=== PATIENT | male | born 1980 | race Two or more races ===

== ENCOUNTER 2023-01-12 17:29 | Emergency (ER) | payer OTHER ==
[~2023-01-12] VITALS: Ht 177.8 cm; Wt 79.4 kg
== END 2023-01-12 20:43 | disposition home or self-care (01) ==
LOC: ER 17:29
DX: U07.1 COVID-19 (principal); G44.89 Other headache syndrome

== ENCOUNTER 2023-01-14 05:55 | Emergency (ER) | payer OTHER ==
[~2023-01-14] VITALS: Ht 175.3 cm; Wt 79.4 kg
[2023-01-14] MEDS ORDERED: METHYLPREDNISOLO8 MG (06:04)
[2023-01-14] MEDS ORDERED: MOLNUPIRAVIR (200 MG (06:04)
[2023-01-14] MEDS ORDERED: NORFLEX100MG PO (08:46)
== END 2023-01-14 08:52 | disposition home or self-care (01) ==
LOC: ER 05:55
DX: U07.1 COVID-19 (principal); R53.81 Other malaise

== ENCOUNTER 2023-01-30 09:21 | Outpatient (CLI) | payer OTHER ==
[~2023-01-30 09:21] MED LIST: METHYLPREDNISOLO8 MG; MOLNUPIRAVIR (200 MG; NORFLEX100MG PO
== END 2023-01-30 09:27 | disposition home or self-care (01) ==
LOC: RX STUDY 09:21
PROVIDERS: ATTEND Otolaryngology Plastic Surgery within the Head & Neck
DX: R13.19 Other dysphagia (principal)

== ENCOUNTER 2024-08-15 07:45 | Emergency (ER) | payer OTHER ==
[~2024-08-15] VITALS: Ht 177.8 cm; Wt 81.6 kg
[2024-08-15] MEDS ORDERED: METHYLPREDNISOLONE SOD SUCC 40 MG VIAL ONE (10:42)
[2024-08-15 11:03] LABS: HEMATOCRIT 44.8 % (39.0-48.0); HEMOGLOBIN 15.5 g/dL (13-16.00); MEAN CELL VOLUME 89.8 fL (80.0-100.00); MEAN CORPUSCULAR HGB CONC 34.5 g/dl (32.0-36.0); PLATELET COUNT 176 K/uL (150-450); RED BLOOD COUNT 4.99 M/uL (4.00-6.00); RED CELL DISTRIBUTION WIDTH 14.1 % (11.5-14.5)
[2024-08-15 11:50] LABS: ALBUMIN 4.1 gm/dL (3.4-5.0); BILIRUBIN TOTAL 0.49 mg/dL (0.3-1.2); CALCIUM 8.9 mg/dL (8.5-10.1); CREATININE SERUM 1.21 mg/dL (0.70-1.30); GFR 64.85; GLOBULINA 3.4 G/DL (2.4-3.5); POTASSIUM 4.28 mEq/L (3.5-5.1); TOTAL PROTEIN 7.5 gm/dL (6.4-8.2)
[2024-08-15 13:43] LABS: PH,URINE 5.5 (5.0-8.0); URINE APPEARANCE Clear; URINE BILIRRUBIN Negative (NEGATIVE); URINE BLOOD Negative; URINE COLOR Yellow; URINE GLUCOSE Negative (NEGATIVE); URINE KETONE Negative (NEGATIVE); URINE LEUKOCYTE Negative; URINE NITRATE Negative; URINE PROTEIN Negative (NEGATIVE); URINE UROBILINOGEN 0.2 E.U./dl
[2024-08-15 13:47] LABS: URINE BACTERIA 81.9 uL (0.0-1933); URINE EPITHELIAL CELLS 2.8 uL (0.0-38.8); URINE WBC 23.5 uL (0.0-23.2)
[2024-08-15 13:50] LABS: URINE RBC 0.2 uL (0.0-20.8)
== END 2024-08-15 13:47 | disposition home or self-care (01) ==
LOC: ER 07:47
PROVIDERS: General Practice
DX: R10.32 Left lower quadrant pain (principal); K29.70 Gastritis, unspecified, without bleeding; F41.8 Other specified anxiety disorders

== ENCOUNTER 2024-08-30 04:26 | Emergency (ER) | payer OTHER ==
[~2024-08-30] VITALS: Ht 177.8 cm; Wt 81.6 kg
[2024-08-30] MEDS ORDERED: METOCLOPRAMIDE HCL 5 MG/ML VIAL IM STA (04:56)
[2024-08-30] MEDS ORDERED: HYOSCYAMINE SULFATE 0.125 MG TAB.SUBL SL STA (04:57)
[2024-08-30] MEDS ORDERED: HYOSCYAMINE SULFATE 0.125 MG TAB.SUBL ONE (05:00)
[2024-08-30] MEDS ORDERED: METOCLOPRAMIDE HCL 5 MG/ML VIAL ONE (05:00)
== END 2024-08-30 05:59 | disposition home or self-care (01) ==
LOC: ER 04:28
DX: K30 Functional dyspepsia (principal); K29.70 Gastritis, unspecified, without bleeding
CPT/HCPCS: 96372; 99282; J2765

== ENCOUNTER 2025-04-14 23:43 | Emergency (ER) | payer OTHER ==
[~2025-04-14] VITALS: Ht 177.8 cm; Wt 73.5 kg
[~2025-04-14 23:43] MED LIST changes: +CLONAZEPAM1 MG
[2025-04-14] MEDS ORDERED: BUSPIRONE HCL5 MG (23:54)
[2025-04-15] MEDS ORDERED: CEFAZOLIN SODIUM 1,000 MG VIAL IM STA (01:05)
[2025-04-15] MEDS ORDERED: CEFAZOLIN SODIUM 1,000 MG VIAL ONE (01:05)
[2025-04-15] MEDS ORDERED: LIDOCAINE HCL 1% 10ML VIAL ONE (01:05)
== END 2025-04-15 01:19 | disposition home or self-care (01) ==
LOC: ER 23:43
DX: H00.032 Abscess of right lower eyelid (principal)

== ENCOUNTER → 2025-06-02 | Emergency (ER) | payer OTHER ==
[~2025-06-02] VITALS: Ht 177.8 cm; Wt 71.7 kg
[~2025-06-02] MED LIST changes: +BUSPIRONE HCL5 MG
== END | disposition left against medical advice (07) ==
LOC: ER 03:00
DX: Z53.21 Procedure and treatment not carried out due to patient leaving prior to being seen by health care provider (principal)